=== PATIENT | female | born 1945 | race Asian ===

== ENCOUNTER 2016-11-07 10:21 | Day surgery (SDC) | payer OTHER ==
[2016-11-07 10:45] VITALS: BMI 26.5
[2016-11-07] MEDS ORDERED: PROPOFOL 20 ML ONE (11:52)
[2016-11-07 12:25] VITALS: TEMP 98.2
[2016-11-07 13:35] VITALS: BP 130/78; PULSE 62
--- NOTE | 2016-11-08 13:19 | PATH ---
Surgical Pathology Report Patient Name: NORIRS LILLY [facility]. Rec. #: [id number] /Age/Gender: 1945 (Age: 70) / F Account: [id number] Location: [facility]-ENDOSCOPY Taken: 11/07/2016 Received: 11/07/2016 Reported: 11/08/2016 Physicians: Randall Gunderson M.D. Specimen(s) Received BX ANTRUM Clinical History Abdominal pain Gastric erosions/gastritis Final Diagnosis STOMACH, ANTRUM, BIOPSY: GASTRIC ANTRAL MUCOSA WITH MODERATE CHRONIC GASTRITIS AND MILD REACTIVE GASTROPATHY WITH FOCAL SURFACE EROSION. IMMUNOSTAIN FOR H. PYLORI IS NEGATIVE FOR ORGANISMS. Electronically Signed Bernardino Mari M.D. Gross Description Received in formalin, labeled "biopsy antrum" is a zimmerman, irregular portion of soft tissue measuring 0.3 cm in greatest dimension. The specimen is submitted in toto in one cassette. [facility]/11/07/2016 [facility]/11/07/2016
== END 2016-11-07 13:10 | disposition home or self-care (01) ==
LOC: JASU-ENDO 10:21
PROVIDERS: ATTEND Internal Medicine Gastroenterology
PROC: 0DB68ZX Excision of Stomach, Via Natural or Artificial Opening Endoscopic, Diagnostic (ICD-10-PCS; principal; 2016-11-07 10:45)
DX: K29.70 Gastritis, unspecified, without bleeding (principal)
CPT/HCPCS: 88305-TC; 88342-TC

== ENCOUNTER 2023-07-01 20:44 | Emergency (ER) | payer BC, OTHER ==
[2023-07-01 20:50] VITALS: BP 159/76; PULSE 80; RESP 18; TEMP 98.4; BMI 26.8
== END 2023-07-01 22:19 | disposition home or self-care (01) ==
LOC: JERFT 20:44
PROC: 0YQTXZZ Repair Right 3rd Toe, External Approach (ICD-10-PCS; principal; 2023-07-01)
DX: S91.114A Laceration without foreign body of right lesser toe(s) without damage to nail, initial encounter (principal); W20.8XXA Other cause of strike by thrown, projected or falling object, initial encounter
CPT/HCPCS: 12001-25; 73630-TC-RT-FY; 99283-25